=== PATIENT | female | born 2000 | race African-American/Black ===

== ENCOUNTER 2023-06-28 03:00 | Emergency (ER) | payer MEDICAID ==
[~2023-06-28] VITALS: Ht 162.6 cm; Wt 78.0 kg
[2023-06-28 04:20] VITALS: BP 132/89; PULSE 89; RESP 16; TEMP 98.7; O2SAT 98
== END 2023-06-28 06:42 | disposition home or self-care (01) ==
LOC: ER 03:00
DX: T19.2XXA Foreign body in vulva and vagina, initial encounter (principal); X58.XXXA Exposure to other specified factors, initial encounter; Y93.89 Activity, other specified; Y92.89 Other specified places as the place of occurrence of the external cause; Y99.8 Other external cause status
CPT/HCPCS: 99284